=== PATIENT | male | born 1955 | race Caucasian/White ===

== ENCOUNTER → 2019-04-24 | Outpatient (CLI) | payer OTHER ==
[2019-04-24 11:29] LABS: African American GFR (CKD) 72.6 (60.0-200.0); Albumin 4.7 g/dL (3.80-4.90); Anion Gap 9.4 mmol/L (4.00-12.00); BUN/Creat Ratio 13.33 Ratio (12.00-20.00); Carbon Dioxide 28.6 mmol/L (21.6-31.8); Chol/HDL Ratio 3.03; LDL Cholesterol,Calculated 64.2 mg/dL (0.0-131.0); Phosphorus 4.1 mg/dL (2.4-5.1); VLDL Calculation 16.8 mg/dL (5.00-40.00)
[2019-04-24 15:50] LABS: Hemoglobin A1C 5.6 % (4.0-6.0)
== END | disposition home or self-care (01) ==
LOC: LABWHC1 06:55
PROVIDERS: ATTEND Family Medicine
DX: E78.00 Pure hypercholesterolemia, unspecified (principal); N18.2 Chronic kidney disease, stage 2 (mild); E11.21 Type 2 diabetes mellitus with diabetic nephropathy
CPT/HCPCS: 36415; 80061; 80069; 83036

== ENCOUNTER → 2019-05-19 | Outpatient (CLI) | payer OTHER ==
--- NOTE | 2019-05-19 09:05 | US ---
EXAMINATION TYPE: US scrotum with doppler. Grayscale and color Doppler Duplex imaging performed of derrick molina scrotum. DATE OF EXAM: 05/19/2019 COMPARISON: NONE CLINICAL HISTORY: N50.89 Testicle lump. EXAM MEASUREMENTS: TESTICLES: Right Testicle: 5.2 x 2.7 x 3.4 cm Left Testicle: 5.2 x 2.6 x 3.2 cm EPIDIDYMIS HEAD: Right Epididymis: 1.1 cm Left Epididymis: 1.9 cm Doppler performed to assess for testicular vascularity; good bilateral color flow and waveforms are s een. There is no evidence of testicular torsion. Presence of hydroceles: no Presence of varicoceles: no Right testicular cyst measuring 0.5 x 0.4 x 0.5cm Left epididymal cyst measuring 2.1 x 2.9 x 2.0cm IMPRESSION: 1. Large left epididymal cyst measuring 2.9 cm. This appears simple and benign. 2. Entirely cystic appearing right intratesticular lesion, also most commonly benign.
== END | disposition home or self-care (01) ==
LOC: RADUSWWP 08:17
PROVIDERS: ATTEND Family Medicine
DX: N50.3 Cyst of epididymis (principal); N50.89 Other specified disorders of the male genital organs
CPT/HCPCS: 76870; 93975

== ENCOUNTER → 2019-06-26 | Outpatient (CLI) | payer OTHER ==
--- NOTE | 2019-06-26 16:03 | CT ---
EXAMINATION TYPE: CT abdomen w con DATE OF EXAM: 06/26/2019 COMPARISON: None HISTORY: Constipation x [address] DLP: 1303.7 mGycm Automated exposure control for dose reduction was used. TECHNIQUE: Helical acquisition of images was performed from the lung bases through the top of iliac crest to include entire abdomen. CONTRAST: Performed with Oral Contrast and with IV Contrast, patient injected with 100 mL of Isovue 300. FINDINGS: LUNG BASES: Calcified granulomas present in the lower lobes, calcified right hilar node noted. LIVER/GB: Liver shows low attenuation likely due to hepatic steatosis, gallbladder are unremarkable PANCREAS: No significant abnormality is seen. SPLEEN: No significant abnormality is seen. ADRENALS: No significant abnormality is seen. KIDNEYS: Exophytic cystic focus present at the posterior aspect of the right kidney lower pole measur es approximately 2.4 cm BOWEL: There is diverticular change associated with the visualized sigmoid colon LYMPH NODES: No significant abnormality is appreciated. OSSEOUS STRUCTURES: Degenerative disc changes are present in the visualized spine. FREE AIR: No Free Air visible ASCITES: None visible. RETROPERITONEAL ADENOPATHY: No Retroperitoneal Adenopathy visible. OTHER: IMPRESSION: DIVERTICULOSIS. HEPATIC STEATOSIS. OLD GRANULOMATOUS DISEASE. PROBABLE CYST ASSOCIATED WITH THE RIGHT KIDNEY. ADDITIONAL FINDINGS ABOVE.
== END ==
LOC: RADCTMAIN 12:56
PROVIDERS: ATTEND Internal Medicine Gastroenterology
DX: K57.90 Diverticulosis of intestine, part unspecified, without perforation or abscess without bleeding (principal); K76.0 Fatty (change of) liver, not elsewhere classified
CPT/HCPCS: 82565; 84520; 74160; 36415; Q9967 ×2

== ENCOUNTER → 2019-06-26 | Outpatient (CLI) | payer OTHER ==
[2019-06-26 13:43] LABS: ALT 30 U/L (10-49); AST 25 U/L (14-35); African American GFR (CKD) 90.5 (60.0-200.0); Albumin/Globulin Ratio 2.37 (1.60-3.17); Alkaline Phosphatase 62 U/L (41-126); C Reactive Protein <0.4 mg/dL (0.0-0.8); Calcium 9.3 mg/dL (8.7-10.3); Carbon Dioxide 28.2 mmol/L (21.6-31.8); Chloride 103 mmol/L (96-109); Globulin 1.9 g/dL (1.6-3.3); Glucose 99 mg/dL (70-110); Non-African American GFR(CKD) 78.1 (60.0-200.0); Potassium 4.4 mmol/L (3.5-5.5); Sodium 139 mmol/L (135-145); Total Bilirubin 0.4 mg/dL (0.3-1.2); Total Protein 6.4 g/dL (6.2-8.2)
[2019-06-26 14:48] LABS: Gliadin AB IgA, Deaminated NEGATIVE (NEGATIVE); Gliadin AB IgA, Unit <0.2 U/mL; Gliadin AB IgG, Deaminated NEGATIVE (NEGATIVE)
== END | disposition home or self-care (01) ==
LOC: LABWHC1 06:38
PROVIDERS: ATTEND Internal Medicine Gastroenterology
DX: R19.4 Change in bowel habit (principal); K59.00 Constipation, unspecified
CPT/HCPCS: 36415; 80053; 82607; 83516; 86140

== ENCOUNTER → 2020-01-01 | Outpatient (CLI) | payer OTHER ==
[2020-01-01 12:27] LABS: Hemoglobin A1C 5.8 % (4.0-6.0)
[2020-01-01 12:44] LABS: African American GFR (CKD) 72.6 (60.0-200.0); Calcium 9.2 mg/dL (8.7-10.3); Carbon Dioxide 26.6 mmol/L (21.6-31.8); Chloride 104 mmol/L (96-109); Chol/HDL Ratio 3.13; Cholesterol 119 mg/dL (0-200); Glucose 111 mg/dL (70-110); LDL Cholesterol,Calculated 65.4 mg/dL (0.0-131.0); Non-African American GFR(CKD) 62.6 (60.0-200.0); Phosphorus 3.2 mg/dL (2.4-5.1); Potassium 4.5 mmol/L (3.5-5.5); Sodium 138 mmol/L (135-145)
[2020-01-01 13:46] LABS: Microalbumin Creatinine Ratio <30 mg/g Creat (0-30); Urine Creatinine 95.2 mg/dL
[2020-01-02 08:03] LABS: Total Bilirubin 0.5; Total Protein 6.6
[2020-01-02 08:04] LABS: AST 26
[2020-01-02 08:05] LABS: ALT 33; Alkaline Phosphatase 63
== END | disposition home or self-care (01) ==
LOC: LABWHC1 07:09
PROVIDERS: ATTEND Family Medicine
DX: E78.00 Pure hypercholesterolemia, unspecified (principal); N18.2 Chronic kidney disease, stage 2 (mild); E11.21 Type 2 diabetes mellitus with diabetic nephropathy; Z12.5 Encounter for screening for malignant neoplasm of prostate
CPT/HCPCS: 36415; 80061; 80069; 80076; 82043; 82570; 83036; 84153

== ENCOUNTER → 2020-07-28 | Outpatient (CLI) | payer OTHER ==
[2020-07-28 12:59] LABS: ALT 42 U/L (10-49); AST 29 U/L (14-35); African American GFR (CKD) 80.1 (60.0-200.0); Alkaline Phosphatase 67 U/L (41-126); BUN/Creat Ratio 15.45 Ratio (12.00-20.00); Chloride 102 mmol/L (96-109); Chol/HDL Ratio 3.43; Cholesterol 137 mg/dL (0-200); Glucose 121 mg/dL (70-110); Non-African American GFR(CKD) 69.1 (60.0-200.0); Phosphorus 3.8 mg/dL (2.4-5.1); Potassium 4.5 mmol/L (3.5-5.5); Sodium 139 mmol/L (135-145); Total Bilirubin 0.6 mg/dL (0.2-1.2); Total Protein 6.9 g/dL (6.2-8.2)
[2020-07-28 13:41] LABS: Hemoglobin A1C 6.1 % (4.0-6.0)
[2020-07-28 20:05] LABS: Urine Creatinine 53.3 mg/dL
== END | disposition home or self-care (01) ==
LOC: LABWHC1 07:02
PROVIDERS: ATTEND Family Medicine
DX: E11.21 Type 2 diabetes mellitus with diabetic nephropathy (principal); E11.22 Type 2 diabetes mellitus with diabetic chronic kidney disease; N18.2 Chronic kidney disease, stage 2 (mild); E78.00 Pure hypercholesterolemia, unspecified
CPT/HCPCS: 36415; 80061; 80069; 80076; 82043; 82570; 83036

== ENCOUNTER → 2021-04-27 | Outpatient (CLI) | payer OTHER ==
[2021-04-28 01:59] LABS: Total Protein 6.7 g/dL (6.2-8.2)
[2021-04-28 02:07] LABS: Chol/HDL Ratio 3.36 Ratio; LDL Cholesterol,Calculated 66.1 mg/dL (0.0-131.0); Phosphorus 3.7 mg/dL (2.4-5.1)
[2021-04-28 11:22] LABS: ALT 39 U/L (10-49); AST 24 U/L (14-35); Albumin 4.5 g/dL (3.8-4.9); Albumin/Globulin Ratio 2.045; Alkaline Phosphatase 63 U/L (41-126); BUN/Creat Ratio 15.84 Ratio (12.00-20.00); Bilirubin, Conjugated <0.20 mg/dL (0.20-0.40); Blood Urea Nitrogen 17.9 mg/dL (9.0-27.0); Calcium 9.5 mg/dL (8.7-10.3); Carbon Dioxide 19.2 mmol/L (21.6-31.8); Chloride 100 mmol/L (96-109); Globulin 2.2; Glucose 105 mg/dL (70-110); Non-African American GFR(CKD) 66.4 (60.0-200.0); Potassium 4.9 mmol/L (3.5-5.5); Sodium 140 mmol/L (135-145)
== END | disposition home or self-care (01) ==
LOC: LABWHC1 07:05
PROVIDERS: ATTEND Family Medicine
DX: E11.21 Type 2 diabetes mellitus with diabetic nephropathy (principal); N18.2 Chronic kidney disease, stage 2 (mild); E78.00 Pure hypercholesterolemia, unspecified
CPT/HCPCS: 36415; 80061; 80069; 80076; 83036

== ENCOUNTER → 2021-05-10 | Outpatient (CLI) | payer OTHER ==
--- NOTE | 2021-05-10 11:34 | XR ---
EXAMINATION TYPE: XR chest 2V DATE OF EXAM: 05/10/2021 COMPARISON: NONE HISTORY: Z87.891. Annual physical. TECHNIQUE: Frontal and lateral views of the chest are obtained. FINDINGS: There is no focal air space opacity, pleural effusion, or pneumothorax seen. The cardiac silhouette size is within normal limits. The osseous structures are intact. IMPRESSION: No acute cardiopulmonary process.
== END | disposition home or self-care (01) ==
LOC: RADXRMAIN 10:49
PROVIDERS: ATTEND Family Medicine
DX: Z09 Encounter for follow-up examination after completed treatment for conditions other than malignant neoplasm (principal); Z87.891 Personal history of nicotine dependence
CPT/HCPCS: 71046

== ENCOUNTER → 2021-08-25 | Outpatient (CLI) | payer OTHER ==
[2021-08-25 09:35] LABS: Basophils # (A) 0.09 X 10*3/uL (0.00-0.10); Basophils % (A) 1.1 %; Eosinophils # (A) 0.14 X 10*3/uL (0.04-0.35); Eosinophils % (A) 1.7 %; HGB 15.5 g/dL (13.0-17.0); Lymphocytes # (A) 1.95 X 10*3/uL (0.90-5.00); Lymphocytes % (A) 23.3 %; MCH 29.7 pg (27.0-32.0); MCHC 32.3 g/dL (32.0-37.0); Mean Platelet Volume 9.5 fL (9.5-12.2); Monocytes # (A) 0.83 X 10*3/uL (0.20-1.00); Monocytes % (A) 9.9 %; NRBC Per 100 WBC 0 /100 WBCS (0.0-0.0); Neutrophils # (A) 5.18 X 10*3/uL (1.80-7.70); Platelet Count 262 X 10*3/uL (140-440); RBC 5.22 X 10*6/uL (4.40-5.60); RDW 12.6 % (11.5-14.5); WBC 8.36 X 10*3/uL (4.50-10.00)
[2021-08-25 11:35] LABS: Anion Gap 11.4 mmol/L (10.00-18.00); Carbon Dioxide 23.2 mmol/L (20.0-27.5); Potassium 4.5 mmol/L (3.5-5.5)
== END | disposition home or self-care (01) ==
LOC: LABPAT 07:02
PROVIDERS: ATTEND Orthopaedic Surgery
DX: Z01.812 Encounter for preprocedural laboratory examination (principal); M23.92 Unspecified internal derangement of left knee
CPT/HCPCS: 36415; 80051; 85025; 93005

== ENCOUNTER 2021-09-08 10:02 | Day surgery (SDC) | payer OTHER ==
[2021-09-07 09:41] VITALS: BMI 30.8
--- NOTE | 2021-09-07 17:20 | HP ---
HISTORY AND PHYSICAL DATE OF SURGERY: 09/08/2021 Luis Antonio Castaneda is a 66-year-old gentleman seen with progressive left knee pain. We discussed options for treatment. He elected to proceed with left knee arthroscopy. Consent was obtained. PAST MEDICAL HISTORY: Hypertension, hyperlipidemia, [id number] diabetes. PAST SURGICAL HISTORY: Noncontributory. DAILY MEDICATIONS: Atorvastatin, metformin, omeprazole. ALLERGIES: NONE. SOCIAL HISTORY: He denies tobacco use. PHYSICAL EVALUATION OF THE LEFT KNEE: Range of motion is zero to 130. Mild effusion. Tenderness along the medial and lateral joint lines. Positive medial Jose's. Positive lateral Jose's. Ligaments stable. Hip rotation without pain. Distal neurovascular exam intact. Left knee radiographs revealed mild osteoarthritis. MRI left knee: Complex lateral meniscal tear. IMPRESSION: 1. Internal derangement of left knee with lateral meniscal tear. 2. Hypertension. 3. Hyperlipidemia. 4. [id number]-fsjjrgeat diabetes. PLAN: Left knee arthroscopy with partial meniscectomy and debridement. MMODL / IJN: [id number] /
[~2021-09-08 10:02] MED LIST: ceFAZolin 3 GM in SODIUM CHLORIDE 0.9% 100 ML IVPB PRN
[2021-09-08] MEDS ORDERED: LACTATED RINGERS 1,000 ML IV ONE (10:40)
[2021-09-08] MEDS ORDERED: ONDANSETRON 4 MG/2 ML VIAL ONE (10:42)
[2021-09-08 10:43] LABS: Glucose,Whole Blood 124 mg/dL (75-99)
[2021-09-08] MEDS ORDERED: DEXAMETHASONE SOD PHOSPHATE 4 MG/ML 1 ML VIAL IVP ONE (10:47)
[2021-09-08] MEDS ORDERED: LIDOCAINE 1% INJ 10MG/ML (20 ML MDV) ONE (11:00)
[2021-09-08] MEDS ORDERED: fentaNYL (PF) 50 MCG/ML 2 ML AMP ONE (11:00)
[2021-09-08] MEDS ORDERED: MIDAZOLAM 2 MG/2 ML VIAL ONE (11:00)
[2021-09-08] MEDS ORDERED: SUCCINYLCHOLINE CHLORIDE VIAL 200 MG/10 ML VIAL IV ONE (11:00)
[2021-09-08] MEDS ORDERED: PROPOFOL 10 MG/ML 20 ML VIAL IV ONE (11:00)
[2021-09-08] MEDS ORDERED: BUPIVACAINE (PF) 0.25% 30 ML VIAL SQ ONE (11:25)
--- NOTE | 2021-09-08 11:56 | P.OP ---
Date of Procedure: 09/08/21 Preoperative Diagnosis: Internal derangement left knee Postoperative Diagnosis: 1. Tear medial and lateral meniscus left knee 2. Grade 4 chondromalacia femoral sulcus left 3. Grade 2/3 chondromalacia medial femoral condyle left knee 4. Reactive synovitis medial, lateral and suprapatellar compartments left knee Procedure(s) Performed: 1. Arthroscopic microfracture femoral sulcus left knee 2. Arthroscopic partial medial and lateral meniscectomy left knee 3. Arthroscopic partial synovectomy medial, lateral and suprapatellar compartments left knee 4. Arthroscopic chondroplasty medial femoral condyle left knee Anesthesia: DRAKEA, local Surgeon: Hipolito Joyner Estimated Blood Loss (ml): 7 Pathology: none sent Condition: stable Disposition: PACU Indications for Procedure: 66-year-old gentleman seen with progressive left knee pain. After having treatment options discussed, he elected to proceed with arthroscopy. Operative Findings: see description of procedure Description of Procedure: Patient was taken to the operative suite. Patient underwent a general anesthetic by the department of anesthesia. Patient was given preoperative antibiotics. The left lower extremity was placed in a well-padded arthroscopic leg gonzales. The left leg was prepped and draped in the normal sterile orthopedic fashion. A lateral parapatellar and suprapatellar incision was made. Trochars were inserted. Arthroscopy was initiated. Suprapatellar pouch revealed diffuse thick reactive synovitis. The patellofemoral joint appeared to articulate congruently. There was grade 2/3 chondral malacia of the patella and areas of grade 4 chondromalacia of the femoral sulcus with some areas of exposed bone. The scope was guided into the medial gutter. No loose bodies or plica were identified. The scope was then guided into the medial compartment. A medial parapatellar incision was made. Trocar inserted followed by probe. There was a complex tear involving the posterior horn medial meniscus. There were grade 2/3 chondromalacia changes of the medial femoral condyle with some osteochondral tears present. There was thick reactive synovitis anteriorly. I performed a partial medial meniscectomy down to stable meniscal tissue. I performed a chondroplasty of the medial femoral condyle getting down to stable osteochondral tissue. I performed a partial synovectomy decompressing the thick reactive synovitis. The residual meniscus was stable. The residual osteochondral surface was stable. There was good decompression of the synovitis. Scope and probe were then guided into the intercondylar notch. Cruciates were identified, probed and found to be stable. The scope and probe were then guided into lateral compartment. There was a radial tear involving the posterior horn lateral meniscus near the midbody area. There were grade 1 chondromalacia changes of the lateral compartment with no osteochondral tears present. There was thick reactive synovitis anteriorly. I performed a partial lateral meniscectomy. I performed a partial synovectomy. The residual meniscus was stable. There was good decompression of the synovitis. The scope was in guided back into the suprapatellar compartment. I introduced a motorized shaver into the suprapatellar compartment. I debrided some piecemeal fragments of meniscus I encountered. I now performed a microfracture to that area of exposed bone along the femoral sulcus penetrating the bone with resultant bleeding at the microfracture site. The residual osteochondral area was stable. I now reintroduced my motorized shaver and performed a partial synovectomy. Shaver was now removed. There was good decompression of the synovitis. I took one more look around the entire knee, no residual debris. Instruments were now removed from the joint. The joint was infiltrated with .25% Marcaine. Steri- Strips were applied to the portal sites. Sterile dressings were applied. The patient was placed into a DAVID hose. No tourniquet was utilized. The patient was awakened, transferred to a bed and taken to recovery stable satisfactory condition.
[2021-09-08 11:58] VITALS: TEMP 97.8
[2021-09-08] MEDS ORDERED: HYDROmorphone 0.5 MG/0.5 ML SYRINGE IVP ONE ×2 (12:12→12:20)
[2021-09-08] MEDS ORDERED: KETOROLAC 15 MG/ML 1 ML VIAL IVP ONE (12:15)
[2021-09-08 12:50] VITALS: RESP 16
[2021-09-08] MEDS ORDERED: HYDROcodone/APAP 5-325MG 1 EACH TAB ONE (12:51)
[2021-09-08] MEDS ORDERED: HYDROcodone/APAP 5-325MG 1 EACH TAB PO ONE (12:53)
[2021-09-08 13:20] VITALS: BP 146/83; PULSE 66
== END 2021-09-08 13:49 | disposition home or self-care (01) ==
LOC: OR 10:02
PROVIDERS: ATTEND Orthopaedic Surgery
DX: M23.201 Derangement of unspecified lateral meniscus due to old tear or injury, left knee (principal); M23.204 Derangement of unspecified medial meniscus due to old tear or injury, left knee; M94.262 Chondromalacia, left knee; M65.862 Other synovitis and tenosynovitis, left lower leg; I10 Essential (primary) hypertension; E78.5 Hyperlipidemia, unspecified; E11.8 Type 2 diabetes mellitus with unspecified complications; Z79.84 Long term (current) use of oral hypoglycemic drugs; Z79.899 Other long term (current) drug therapy; Z87.891 Personal history of nicotine dependence; M19.90 Unspecified osteoarthritis, unspecified site; K21.9 Gastro-esophageal reflux disease without esophagitis; Z79.82 Long term (current) use of aspirin; Z98.890 Other specified postprocedural states; Z85.828 Personal history of other malignant neoplasm of skin
CPT/HCPCS: 29881; J2250; J0330; J1100; J0690; J2405; J2001; J3010; J1885; J2704; J1170

== ENCOUNTER → 2022-05-03 | Outpatient (CLI) | payer MEDICARE ==
[2022-05-03 11:24] LABS: ALT 23 U/L (10-49); AST 22 U/L (14-35); Bilirubin, Conjugated <0.20 mg/dL (0.20-0.40); Total Protein 6.9 g/dL (6.2-8.2)
[2022-05-03 11:36] LABS: African American GFR (CKD) 80.7 (60.0-200.0); Albumin 4.5 g/dL (3.8-4.9); Albumin/Globulin Ratio 1.875; Alkaline Phosphatase 69 U/L (41-126); Blood Urea Nitrogen 18.9 mg/dL (9.0-27.0); Calcium 9.5 mg/dL (8.7-10.3); Carbon Dioxide 28.1 mmol/L (20.0-27.5); Chloride 100 mmol/L (96-109); Chol/HDL Ratio 3.63 Ratio; Globulin 2.4; Glucose 123 mg/dL (70-110); LDL Cholesterol,Calculated 53.9 mg/dL (0.0-131.0); Non-African American GFR(CKD) 69.7 (60.0-200.0); Phosphorus 3.5 mg/dL (2.4-5.1); Potassium 4.7 mmol/L (3.5-5.5); Sodium 137 mmol/L (135-145)
== END | disposition home or self-care (01) ==
LOC: LABWHC1 07:12
PROVIDERS: ATTEND Family Medicine
DX: Z12.5 Encounter for screening for malignant neoplasm of prostate (principal); E11.21 Type 2 diabetes mellitus with diabetic nephropathy; E11.22 Type 2 diabetes mellitus with diabetic chronic kidney disease; N18.2 Chronic kidney disease, stage 2 (mild); Z79.899 Other long term (current) drug therapy; E78.00 Pure hypercholesterolemia, unspecified
CPT/HCPCS: 80061; 80076; 80069; 83036; 36415; G0103